=== PATIENT | male | born 1975 | race Hispanic/Latino ===

== ENCOUNTER 2017-12-10 13:44 | Emergency (ER) | payer SELFPAY ==
--- NOTE | 2017-12-10 14:22 | ER ---
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 Transition of care: patient was not received from another setting of care. Onset of symptoms was December 10, 2017. Initial Sepsis Screen: Does the patient meet any 2 criteria? No. Patient's initial sepsis screen is negative. Does the patient have a suspected source of infection? No. Patient's initial sepsis screen is negative. Care prior to arrival: None. 13:49 Method Of Arrival: Ambulatory hb 13:49 Acuity: DESTINY 3 ss Historical: - Allergies: 13:50 No Known Allergies; hb - Immunization history:: Adult Immunizations up to date. - Social history:: Smoking status: Patient/guardian denies using tobacco. - Family history:: not pertinent. Screenin:00 Abuse screen: Denies threats or abuse. Denies injuries from another. Nutritional ph screening: No deficits noted. Tuberculosis screening: No symptoms or risk factors identified. Fall Risk None identified. Assessment: 14:00 General: Appears in no apparent distress. comfortable, slender, Behavior is calm, ph cooperative, appropriate for age. Pain: Complains of pain in right hand and dorsal aspect of proximal phalanx of right middle finger. Neuro: Level of Consciousness is awake, alert, obeys commands, Oriented to person, place, time, situation. Cardiovascular: Denies chest pain, lightheadedness, nausea, shortness of breath, Capillary refill < 3 seconds Patient's skin is warm and dry. Respiratory: Airway is patent Respiratory effort is even, unlabored, Breath sounds are clear bilaterally. Denies shortness of breath. GI: Patient currently denies diarrhea, nausea, vomiting. Derm: Skin is intact, is healthy with good turgor, Skin is pink, warm \T\ dry. Musculoskeletal: Swelling present in right hand. Vital Signs: 13:49 BP 142 / 10; Pulse 64; Resp 18; Temp 98; Pulse Ox 100% on R/A; Weight 79.38 kg; Height hb 6 ft. (182.88 cm); Pain 4/10; 14:55 BP 137 / 78; Pulse 62; Resp 18; Temp 97.8; Pulse Ox 98% ; ph 13:49 Body Mass Index 23.73 (79.38 kg, 182.88 cm) hb ED Course: 13:46 Patient arrived in ED. as 13:49 Triage completed. hb 13:49 Arm band placed on left wrist. hb 13:56 Letty Roberts, RN is Primary Nurse. ph 13:58 Sunny Blanchard MD is Attending Physician. [facility] 14:00 Patient has correct armband on for positive identification. Bed in low position. Call ph light in reach. Side rails up X 1. Pulse ox on. NIBP on. 14:57 No provider procedures requiring assistance completed. Patient did not have IV access ph during this emergency room visit. Administered Medications: No medications were administered Outcome: 14:22 Discharge ordered by . sravani 14:57 Patient left the ED. ph 14:57 Discharged to home ambulatory. ph 14:57 Condition: good 14:57 Discharge instructions given to patient, Instructed on discharge instructions, follow up and referral plans. medication usage, Demonstrated understanding of instructions, follow-up care, medications, Prescriptions given X 1. Signatures: Sunny Blanchard MD MD cha Martinez, Amelia as Smirch, Shelby, RN RN Letty Roberts, SHELDON RN Crystal Akers RN RN Corrections: (The following items were deleted from the chart) 13:53 13:49 Acuity: DESTINY 3 hb ss 13:55 13:49 Acuity: DESTINY 4 ss ss
--- NOTE | 2017-12-10 14:22 | EDPHYS ---
Physician Documentation [facility] Name: Saran Carmona Age: 42 yrs Sex: Male : 1975 Arrival Date: 12/10/2017 Time: 13:46 Bed 13 Private MD: ED Physician Sunny Blanchard HPI: 12/10 14:17 This 42 yrs old Male presents to ER via Ambulatory with complaints of Scorpion sravani Bite. 14:17 The patient or guardian reports decreased range of motion, pain, swelling, tenderness. sravani The complaints affect the right hand diffusely. Context: resulted from bite,scorpoin. Onset: The symptoms/episode began/occurred just prior to arrival. Modifying factors: The symptoms are alleviated by holding still, ice/coldpack to affected area, the symptoms are aggravated by movement, dependent position. Associated signs and symptoms: The patient has no apparent associated signs or symptoms. Severity of symptoms: At their worst the symptoms were mild, in the emergency department the symptoms are unchanged. The patient has not experienced similar symptoms in the past. Historical: - Allergies: 13:50 No Known Allergies; hb - Immunization history:: Adult Immunizations up to date. - Social history:: Smoking status: Patient/guardian denies using tobacco. - Family history:: not pertinent. ROS: 14:17 Constitutional: Negative for fever, chills, and weight loss, Eyes: Negative for injury, sravani pain, redness, and discharge, ENT: Negative for injury, pain, and discharge, Neck: Negative for injury, pain, and swelling, Cardiovascular: Negative for chest pain, palpitations, and edema, Respiratory: Negative for shortness of breath, cough, wheezing, and pleuritic chest pain, Abdomen/GI: Negative for abdominal pain, nausea, vomiting, diarrhea, and constipation, Back: Negative for injury and pain, : Negative for injury, bleeding, discharge, and swelling, Skin: Negative for injury, rash, and discoloration, Neuro: Negative for headache, weakness, numbness, tingling, and seizure. 14:17 MS/extremity: Positive for pain, swelling, tenderness, of the dorsal aspect of proximal phalanx of right middle finger. Exam: 14:17 Constitutional: This is a well developed, well nourished patient who is awake, alert, sravani and in no acute distress. Head/Face: Normocephalic, atraumatic. Eyes: Pupils equal round and reactive to light, extra-ocular motions intact. Lids and lashes normal. Conjunctiva and sclera are non-icteric and not injected. Cornea within normal limits. Periorbital areas with no swelling, redness, or edema. ENT: Nares patent. No nasal discharge, no septal abnormalities noted. Tympanic membranes are normal and external auditory canals are clear. Oropharynx with no redness, swelling, or masses, exudates, or evidence of obstruction, uvula midline. Mucous membranes moist. Neck: Trachea midline, no thyromegaly or masses palpated, and no cervical lymphadenopathy. Supple, full range of motion without nuchal rigidity, or vertebral point tenderness. No Meningismus. Chest/axilla: Normal chest wall appearance and motion. Nontender with no deformity. No lesions are appreciated. Cardiovascular: Regular rate and rhythm with a normal S1 and S2. No gallops, murmurs, or rubs. Normal PMI, no JVD. No pulse deficits. Respiratory: Lungs have equal breath sounds bilaterally, clear to auscultation and percussion. No rales, rhonchi or wheezes noted. No increased work of breathing, no retractions or nasal flaring. Abdomen/GI: Soft, non-tender, with normal bowel sounds. No distension or tympany. No guarding or rebound. No evidence of tenderness throughout. Back: No spinal tenderness. No costovertebral tenderness. Full range of motion. Male : Normal genitalia with no discharge or lesions. Skin: Warm, dry with normal turgor. Normal color with no rashes, no lesions, and no evidence of cellulitis. Neuro: Awake and alert, GCS 15, oriented to person, place, time, and situation. Cranial nerves II-XII grossly intact. Motor strength 5/5 in all extremities. Sensory grossly intact. Cerebellar exam normal. Normal gait. Psych: Awake, alert, with orientation to person, place and time. Behavior, mood, and affect are within normal limits. 14:17 Musculoskeletal/extremity: Extremities: bite, decreased ROM, pain, swelling, tenderness. Vital Signs: 13:49 BP 142 / 10; Pulse 64; Resp 18; Temp 98; Pulse Ox 100% on R/A; Weight 79.38 kg; Height hb 6 ft. (182.88 cm); Pain 4/10; 14:55 BP 137 / 78; Pulse 62; Resp 18; Temp 97.8; Pulse Ox 98% ; ph 13:49 Body Mass Index 23.73 (79.38 kg, 182.88 cm) hb MDM: 13:59 Patient medically screened. [facility] 14:30 Data reviewed: vital signs, nurses notes. [facility] Administered Medications: No medications were administered Disposition: 12/10/17 14:22 Discharged to Home. Impression: Insect bite (nonvenomous) of right hand - scorpoin. - Condition is Stable. - Discharge Instructions: Insect Bite, [id number]. - Prescriptions for Motrin IB 200 mg Oral Tablet - take 1 tablet by ORAL route every 6 hours As needed as needed with food; 20 tablet. - Medication Reconciliation Form, Thank You Letter, Antibiotic Education, Prescription Opioid Use form. - Follow up: Private Physician; When: 2 - 3 days; Reason: If symptoms return, Recheck today's complaints, Continuance of care, Re-evaluation by your physician. - Problem is new. - Symptoms have improved. Signatures: Sunny Blanchard MD MD cha Hall, Patricia, RN RN ph Crystal Akers, RN RN hb
== END 2017-12-10 14:57 | disposition home or self-care (01) ==
LOC: ER 13:44
DX: S60.561A Insect bite (nonvenomous) of right hand, initial encounter (principal)
CPT/HCPCS: 99283